=== PATIENT | female | born 1960 | race Caucasian/White ===

== ENCOUNTER 2019-11-18 10:21 | Outpatient (CLI) | payer OTHER, SELFPAY ==
--- NOTE | ~2019-11-18 | XR_ITS ---
XR finger 1st RT min 2V DATE: 11/18/2019 10:39 INDICATION: Proximal thumb pain. TECHNIQUE: 2 views COMPARISON: None FINDINGS: There is severe narrowing and prominent spurring at the first carpometacarpal joint compati ble with severe osteoarthritis. No fracture, dislocation, periosteal reaction or bone destruction is detected. IMPRESSION: Severe osteoarthritis at first carpometacarpal joint Reviewed, dictated and finalized at location B. WPF DEVELOPER
== END 2019-11-18 10:22 | disposition home or self-care (01) ==
PROVIDERS: PCP Internal Medicine; Visit Provider Internal Medicine
DX: M79.646 Pain in unspecified finger(s) (principal); M19.041 Primary osteoarthritis, right hand
CPT/HCPCS: 73140

== ENCOUNTER 2021-09-17 08:38 | Outpatient (CLI) | payer OTHER, SELFPAY ==
--- NOTE | ~2021-09-17 | MR_ITS ---
EXAMINATION: MR knee RT wo con DATE: 09/17/2021 10:12 INDICATION: Right knee pain TECHNIQUE: Magnetic resonance imaging (MRI) of the right knee was performed without intravenous contr ast. Sequences included coronal PD-weighted FSE, coronal PD-weighted FS FSE, sagittal T2-weighted FS E, sagittal PD-weighted FS FSE and axial PD weighted fat saturated FSE. COMPARISON: None. FINDINGS: Medial compartment: Mild increased intrasubstance signal at the periphery of the body of the medial meniscus which remain s of less than fluid signal intensity and which does not unambiguously contact the articular surface which could be related to either degeneration or reported prior meniscal repair. No definitive residu al/recurrent tear. Diffuse mild partial-thickness cartilage loss throughout the weightbearing medial femoral condyle as well as the medial side of the medial tibial plateau with minimal scattered chondr al surface irregularity. No degenerative subchondral changes. Lateral compartment: Lateral meniscus is normal. Mild partial-thickness cartilage loss with smooth chondral surface along the posterior weightbearing lateral femoral condyle. Remaining cartilage is normal. Patellofemoral compartment: Partial-thickness cartilage loss along the medial patellar facet and medial trochlea. Mild chondral s urface regularity along the lateral patellar facet. No degenerative subchondral changes. Ligaments and tendons: Anterior and posterior cruciate ligaments are normal. The medial collateral ligament and fibular kaiser ateral ligament complex are normal. The extensor mechanism is normal. The visualized medial and later al hamstring tendons as well as the iliotibial band are normal. Fluid: Physiologic amount of fluid in the joint space. No loose osteochondral bodies identified. Rodriguez's cys t extending 9.7 cm proximal to distal measuring up to 2.9 x 1.6 similar in maximal diameter proximall y posterior to the semimembranosus and up to 1.7 x 1.2 cm in maximal transaxial dimensions distally w here it passes between the semimembranosus tendon and the medial head of the gastrocnemius muscle. Osseous/other: Normal marrow signal. No fracture or pathologic marrow replacing process. There is edema in the super ficial suprapatellar fat pad which can be seen with fat pad impingement syndrome. Dense scarring at t he medial and lateral aspect of Hoffa's fat pad likely related to prior arthroscopy with reported his tory of prior meniscal repair. IMPRESSION: 1. Mild tricompartmental osteoarthritis with medial compartment and medial patellofemoral predominanc e. 2. Mild increased intrasubstance signal in the periphery of the body of the medial meniscus which rem ains of less than fluid signal intensity which is does not unambiguously contact the articular surfac e to suggest residual/recurrent meniscal tear and could be related to either mucoid degeneration or s carring related to reported prior meniscal repair. 3. Large Rodriguez's cyst. 4. Mild edema in the superficial suprapatellar fat pad consistent with fat pad impingement syndrome. Reviewed, dictated and finalized at location B. T SUPERVISOR IMPRESSION: 1. Mild tricompartmental osteoarthritis with medial compartment and medial [place] llofemoral predominance. 2. Mild increased intrasubstance signal in the periphery of the body of the med ial meniscus which remains of less than fluid signal intensity which is does no t unambiguously contact the articular surface to suggest residual/recurrent men iscal tear and could be related to either mucoid degeneration or scarring relat ed to reported prior meniscal repair. 3. Large Rodriguez's cyst. 4. Mild edema in the superficial suprapatellar fat pad consistent with fat pad impingement syndrome.
== END 2021-09-17 08:39 | disposition home or self-care (01) ==
PROVIDERS: PCP Nurse Practitioner Family; Visit Provider Orthopaedic Surgery
DX: M25.561 Pain in right knee (principal); M17.11 Unilateral primary osteoarthritis, right knee; M71.21 Synovial cyst of popliteal space [Baker], right knee; M79.89 Other specified soft tissue disorders
CPT/HCPCS: 73721